=== PATIENT | male | born 1970 | race Caucasian/White ===

== ENCOUNTER 2021-02-18 07:43 | Day surgery (SDC) | payer OTHER, SELFPAY ==
[~2021-02-18] VITALS: Ht 177.8 cm; Wt 99.3 kg
[2021-02-18] MEDS ORDERED: fentaNYL citrate 0.05 MG/ML VIAL ONE (10:19)
[2021-02-18] MEDS ORDERED: LIDOCAINE 2% 100 MG/5 ML UJET TP ONE (10:19)
[2021-02-18] MEDS ORDERED: fentaNYL citrate 0.05 MG/ML VIAL IVP ONE (12:15)
== END 2021-02-18 12:47 | disposition home or self-care (01) ==
LOC: MDS 07:43 → MMU 07:47 → MDS 12:47
PROVIDERS: ATTEND Internal Medicine Gastroenterology
DX: Z12.11 Encounter for screening for malignant neoplasm of colon (principal); K76.0 Fatty (change of) liver, not elsewhere classified; E66.9 Obesity, unspecified; E11.9 Type 2 diabetes mellitus without complications; E78.5 Hyperlipidemia, unspecified; F41.9 Anxiety disorder, unspecified; F32.9 Major depressive disorder, single episode, unspecified; Z79.84 Long term (current) use of oral hypoglycemic drugs; Z79.899 Other long term (current) drug therapy; Z20.822 Contact with and (suspected) exposure to COVID-19; Z68.31 Body mass index [BMI] 31.0-31.9, adult
CPT/HCPCS: 45378; J3010; U0003